=== PATIENT | male | born 1990 | race African-American/Black ===

== ENCOUNTER → 2022-01-16 19:07 | Outpatient (ROUT) | payer OTHER, SELFPAY ==
[2022-01-16 21:37] LABS: Urine N gonorrhoeae NOT DETECTED
[2022-01-16 21:39] LABS: Urine Chlamydia NOT DETECTED
== END ==
PROVIDERS: Visit Provider Nurse Practitioner Family
DX: Z11.3 Encounter for screening for infections with a predominantly sexual mode of transmission (principal); Z71.1 Person with feared health complaint in whom no diagnosis is made
CPT/HCPCS: 87491; 87591

== ENCOUNTER → 2022-01-17 07:05 | Outpatient (CLI) | payer OTHER, SELFPAY ==
[2022-01-17 10:17] LABS: Hepatitis B Surface Antigen NEGATIVE s/c (NEGATIVE)
[2022-01-17 10:34] LABS: HIV 1 & 2 Ab/Ag 4th Gen Combo NEGATIVE (NEGATIVE); Hep C Virus Ab w/Reflex Quant NEGATIVE s/c (NEGATIVE)
[2022-01-18 03:36] LABS: HSV1IGG < 0.91 index (0.00-0.90)
[2022-01-18 07:09] LABS: RPR Screen Non Reactive (Non Reactive)
== END ==
PROVIDERS: Referring Provider Nurse Practitioner Family; Visit Provider Nurse Practitioner Family
DX: Z71.1 Person with feared health complaint in whom no diagnosis is made (principal)
CPT/HCPCS: 36415; 86592; 86694; 86695; 86696; 86803; 87340; 87389